=== PATIENT | female | born 1975 | race Caucasian/White ===

== ENCOUNTER 2020-03-06 12:57 | Outpatient (CLI) | payer MEDICARE, MEDICAID, SELFPAY | END 2020-03-06 12:58 | disposition home or self-care (01) | LOC: ANHBWCAUD 12:58 | PROVIDERS: PCP Family Medicine | DX: H90.3 Sensorineural hearing loss, bilateral (principal) | CPT/HCPCS: 92557; 92567 ==

== ENCOUNTER 2020-03-19 13:02 | Outpatient (RCR) | payer MEDICAID, SELFPAY | END 2020-06-17 23:59 | disposition home or self-care (01) | LOC: ANHBWCAUD 13:02 | PROVIDERS: PCP Family Medicine; Visit Provider Family Medicine | DX: Z46.1 Encounter for fitting and adjustment of hearing aid (principal) | CPT/HCPCS: V5160; V5261 ==